=== PATIENT | female | born 1960 | race African-American/Black ===

== ENCOUNTER 2017-10-29 16:04 | Emergency (ER) | payer SELFPAY | END 2017-10-29 19:30 | disposition left against medical advice (07) | LOC: E/R 16:04 | DX: Z53.21 Procedure and treatment not carried out due to patient leaving prior to being seen by health care provider (principal) ==

== ENCOUNTER 2018-02-20 03:33 | Emergency (ER) | payer BC ==
[2018-02-20 04:54] LABS: ADD MAN DIFF? NO
[2018-02-20] MEDS: SOD CHLORIDE 0.9% 1,000 ML IV (04:54)
[2018-02-20] MEDS: ONDANSETRON 4 MG INJ IV (04:55)
[2018-02-20 04:57] LABS: BASOPHILS % 0.5 % (0.0-2.0); EOSINOPHILS # 0.1 10^3/ul (0.0-0.5); EOSINOPHILS % 1.2 % (0.0-7.0); HEMATOCRIT 39.9 % (37.0-47.0); HEMOGLOBIN 12.2 g/dl (12.0-16.0); LYMPHOCYTES # 2.6 10^3/ul (0.8-2.9); MEAN CORPUSCULAR HEMOGLOBIN 25.5 pg (29.0-33.0); MEAN CORPUSCULAR HGB CONC 30.6 g/dl (32.0-37.0); MEAN CORPUSCULAR VOLUME 83.3 fl (82.0-101.0); MEAN PLATELET VOLUME 10.3 fl (7.4-10.4); MONOCYTE # 0.4 10^3/ul (0.3-0.9); MONOCYTES % 6.9 % (0.0-11.0); NEUTROPHIL # 2.6 10^3/ul (1.6-7.5); NEUTROPHILS % 45.2 % (39.0-77.0); PLATELET COUNT 247 10^3/UL (140-415); RED BLOOD COUNT 4.79 10^6/ul (4.20-5.40); RED CELL DISTRIBUTION WIDTH 13.5 % (11.5-14.5)
[2018-02-20 04:57] LABS: WHITE BLOOD COUNT 5.7 10^3/ul (4.8-10.8)
[2018-02-20 05:14] LABS: ALANINE AMINOTRANSFERASE 25 IU/L (13-69); ALBUMIN 4.4 g/dl (3.3-4.9); ALBUMIN/GLOBULIN RATIO 1.33; ALKALINE PHOSPHATASE 91 IU/L (42-121); AMYLASE 100 U/L (11-123); ANION GAP 11 (8-16); ASPARTATE AMINO TRANSFERASE 25 IU/L (15-46); BILIRUBIN,INDIRECT 0.4 mg/dl (0-1.1); BILIRUBIN,TOTAL 0.4 mg/dl (0.2-1.3); BLOOD UREA NITROGEN 13 mg/dl (7-20); CALCIUM 9.7 mg/dl (8.4-10.2); CARBON DIOXIDE 27 mmol/L (21-31); CHLORIDE 107 mmol/L (97-110); CREATININE 1.07 mg/dl (0.44-1.00); GLUCOSE 99 mg/dl (70-220); LIPASE 87 U/L (23-300); SODIUM 141 mmol/L (135-144); TOTAL PROTEIN 7.7 g/dl (6.1-8.1)
== END 2018-02-20 07:14 | disposition home or self-care (01) ==
LOC: FTE 03:33
DX: R19.7 Diarrhea, unspecified (principal)
CPT/HCPCS: 80053; 82150; 83690; 85025; 96361; 96374; 99284-25

== ENCOUNTER 2018-06-02 14:27 | Emergency (ER) | payer BC ==
[2018-06-02] MEDS: ACETAMINOPHEN 325 MG TAB PO (15:38)
== END 2018-06-02 16:25 | disposition home or self-care (01) ==
LOC: FTE 16:25
DX: R05 Cough (principal)
CPT/HCPCS: 71045; 99283-25